=== PATIENT | male | born 1960 | race Caucasian/White ===

== ENCOUNTER → 2018-09-24 | Outpatient (CLI) | payer OTHER ==
[~2018-09-24] MED LIST: IOHEXOL 300 MG/ML 75 ML VIAL. IV ONE
--- NOTE | 2018-09-24 11:14 | RAD ---
CT of the chest with contrast, 09/24/2018: HISTORY: Cough, sinus infection Multidetector CT imaging was performed following an IV bolus injection of iodinated contrast material. The thoracic aorta is unremarkable. The heart is at the upper limits of normal in size. There are mediastinal and right hilar calcifications compatible with old granulomatous disease. No mediastinal or hilar adenopathy is evident. A calcified granuloma is present in the right lower lobe. There is minimal dependent atelectasis or scarring posteriorly in both lungs. There is minimal linear scarring in the inferior lingula on the left. No pulmonary mass or dense consolidation is seen. There is no evidence of pleural fluid. IMPRESSION: 1. Mild dependent atelectasis and/or scarring posteriorly in both lungs. 2. Old healed granulomatous disease in the chest. PQRS Compliance Statement: One or more of the following individualized dose reduction techniques were utilized for this examination: 1. Automated exposure control 2. Adjustment of the mA and/or kV according to patient size 3. Use of iterative reconstruction technique Electronically signed by: Riley Thao MD (09/24/2018 11:11 AM) [facility]– [place]
== END | disposition home or self-care (01) ==
LOC: CT 07:56
PROVIDERS: ATTEND Physician Assistant
DX: J98.11 Atelectasis (principal); J98.4 Other disorders of lung; J84.10 Pulmonary fibrosis, unspecified
CPT/HCPCS: 71260; Q9967

== ENCOUNTER → 2020-12-20 | Outpatient (CLI) | payer BC ==
--- NOTE | 2020-12-20 10:51 | RAD ---
EXAM: Bilateral knees, standing view; left knee, 2 views. HISTORY: Pain. COMPARISON: None. FINDINGS: A standing view both knees and lateral and sunrise views of the left knee are obtained. The re is mild right medial compartment joint space narrowing. There is no fracture, dislocation or sublu xation. There is no left knee effusion. IMPRESSION: No acute osseous finding. Electronically signed by: Zoya Montiel MD (12/20/2020 10:49 AM) [id number]
== END ==
LOC: RAD 10:24
PROVIDERS: ATTEND Orthopaedic Surgery Sports Medicine
DX: M25.562 Pain in left knee (principal); M25.862 Other specified joint disorders, left knee
CPT/HCPCS: 73560; 73565